=== PATIENT | female | born 1965 | race American Indian/Alaskan Native ===

== ENCOUNTER 2017-05-02 10:00 | Emergency (ER) | payer OTHER ==
--- NOTE | 2017-05-02 10:15 | EDM.PDOC ---
ED HPI GENERAL MEDICAL PROBLEM - General Stated Complaint: BY AMBULANCE Time Seen by Provider: 05/02/17 10:05 Source of Information: Reports: Patient History Limitations: Reports: No Limitations - History of Present Illness INITIAL COMMENTS - FREE TEXT/NARRATIVE: This 51 yo female patient was brought to the ED by [facility] due to chest pain. The patient was given aspirin and nitro x1 by EMS prior to arrival in the ED. The patient refused IV access and EKG by EMS. The patient reports she has been having intermittent chest pain for the past 2 days and did not want to tell anyone about it. The patient reports she has no pain at the time of assessment. The patient reports she has been having a cough for the past couple of weeks with increased pain with her cough. The patient reports she has been drinking (6 -8 beers with the last drink at 2200 last night). The patient denies any drug use. The patient reports she has been eating normally with her last meal at about 1800 last night. 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 [No Known Home Meds] 05/02/17 [History] ED ROS GENERAL - Review of Systems Review Of Systems: ROS reveals no pertinent complaints other than HPI. ED EXAM, GENERAL - Physical Exam Exam: See Below Exam Limited By: No Limitations General Appearance: Alert, WD/WN, Moderate Distress Eye Exam: Bilateral Eye: EOMI, Normal Inspection, PERRL Ears: Normal External Exam, Normal Canal, Hearing Grossly Normal, Normal TMs Nose: Normal Inspection, Normal Mucosa, No Blood Throat/Mouth: Normal Inspection, Normal Lips, Normal Teeth, Normal Gums, Normal Oropharynx, Normal Voice, No Airway Compromise Head: Atraumatic, Normocephalic Neck: Normal Inspection, Supple, Non-Tender, Full Range of Motion Respiratory/Chest: No Respiratory Distress, Lungs Clear, Normal Breath Sounds, No Accessory Muscle Use, Other (sternal tenderness with deep breaths) Cardiovascular: Normal Peripheral Pulses, Regular Rate, Rhythm, No Edema, No Gallop, No JVD, No Murmur, No Rub GI/Abdominal: Normal Bowel Sounds, Soft, Tender (lower abdomen (diffuse) ) (Female) Exam: Deferred Rectal (Female) Exam: Deferred Back Exam: Normal Inspection, Full Range of Motion, NT Extremities: Normal Inspection, Normal Range of Motion, Non-Tender, Normal Capillary Refill, No Pedal Edema Neurological: Alert, Oriented, CN II-XII Intact, Normal Cognition, Normal Gait, Normal Reflexes, No Motor/Sensory Deficits Psychiatric: Anxious Skin Exam: Warm, Dry, Intact, Normal Color, No Rash Lymphatic: No Adenopathy Course - Vital Signs Last Recorded V/S: Last Vital Signs Temp 36.4 C 05/02/17 10:10 Pulse 80 05/02/17 10:10 Resp 20 05/02/17 10:10 BP 90/60 05/02/17 10:10 Pulse Ox 99 05/02/17 10:10 - Orders/Labs/Meds Orders: Active Orders 24 hr Category Date Time Status EKG Documentation Completion [RC] URGENT Care 05/02/17 09:54 Active Chest 1V Frontal [CR] Urgent Exams 05/02/17 09:55 Taken Labs: Laboratory Tests 05/02/17 05/02/17 05/02/17 Range/Units 10:10 10:10 10:10 WBC 7.2 (5.0-10.0) 10^3/uL RBC 3.72 L (4.2-5.4) 10^6/uL Hgb 12.8 (12.0-16.0) g/dL Hct 35.8 L (37.0-47.0) % MCV 96.2 (80-100) fL MCH 34.4 H (27.0-34.0) pg MCHC 35.8 H (33.0-35.0) g/dL Plt Count 128 L (150-450) 10^3/uL Neut % (Auto) 53.1 (42.2-75.2) % Lymph % (Auto) 36.2 (20.5-50.1) % [place] % (Auto) 9.3 H (2-8) % Eos % (Auto) 1.0 (1.0-3.0) % Baso % (Auto) 0.4 (0.0-1.0) % Sodium 140 (135-145) mmol/L Potassium 3.3 L (3.6-5.0) mmol/L Chloride 109 (101-111) mmol/L Carbon Dioxide 19.0 L (21.0-31.0) mmol/L Anion Gap 15.3 BUN 9 (7-18) mg/dL Creatinine 0.5 L (0.6-1.3) mg/dL Est Cr Clr Drug Dosing TNP Estimated GFR (MDRD) > 60 BUN/Creatinine Ratio 18.00 Glucose 116 H (74-105) mg/dL Calcium 8.1 L (8.4-10.2) mg/dl Magnesium 1.8 (1.8-2.5) mg/dL Total Bilirubin 0.4 (0.2-1.0) mg/dL AST 268 H (10-42) IU/L ALT 217 H (10-60) IU/L Alkaline Phosphatase 105 (42-121) IU/L Ammonia 31 (11-35) umol/L Troponin I < 0.02 (0.00-0.02) ng/ml Total Protein 7.6 (6.7-8.2) g/dl Albumin 3.9 (3.2-5.5) g/dl Globulin 3.7 Albumin/Globulin Ratio 1.05 Amylase 55 (28-100) U/L Lipase 29 (22-51) U/L Urine Color (YELLOW) Urine Appearance (CLEAR) Urine pH (5.0-9.0) Ur Specific Emery (1.005-1.030) Urine Protein (NEGATIVE) Urine Glucose (UA) (NEGATIVE) Urine Ketones (NEGATIVE) Urine Occult Blood (NEGATIVE) Urine Nitrite (NEGATIVE) Urine Bilirubin (NEGATIVE) Urine Urobilinogen (0.2-1.0) mg/dL Ur Leukocyte Esterase (NEGATIVE) Urine RBC /HPF Urine WBC (0-5/HPF) /HPF Ur Epithelial Cells /HPF Urine Bacteria (0-FEW/HPF) /HPF Salicylates < 4 Urine Opiates Screen (NEGATIVE) Ur Oxycodone Screen (NEGATIVE) Urine Methadone Screen (NEGATIVE) Acetaminophen < 10 Ur Barbiturates Screen (NEGATIVE) U Tricyclic Antidepress (NEGATIVE) Ur Phencyclidine Scrn (NEGATIVE) Ur Amphetamine Screen (NEGATIVE) U Methamphetamines Scrn (NEGATIVE) Urine MDMA Screen (NEGATIVE) U Benzodiazepines Scrn (NEGATIVE) Urine Cocaine Screen (NEGATIVE) U Marijuana (THC) Screen (NEGATIVE) Ethyl Alcohol 337 mg/dL 05/02/17 05/02/17 Range/Units 10:17 10:17 WBC (5.0-10.0) 10^3/uL RBC (4.2-5.4) 10^6/uL Hgb (12.0-16.0) g/dL Hct (37.0-47.0) % MCV (80-100) fL MCH (27.0-34.0) pg MCHC (33.0-35.0) g/dL Plt Count (150-450) 10^3/uL Neut % (Auto) (42.2-75.2) % Lymph % (Auto) (20.5-50.1) % [place] % (Auto) (2-8) % Eos % (Auto) (1.0-3.0) % Baso % (Auto) (0.0-1.0) % Sodium (135-145) mmol/L Potassium (3.6-5.0) mmol/L Chloride (101-111) mmol/L Carbon Dioxide (21.0-31.0) mmol/L Anion Gap BUN (7-18) mg/dL Creatinine (0.6-1.3) mg/dL Est Cr Clr Drug Dosing Estimated GFR (MDRD) BUN/Creatinine Ratio Glucose (74-105) mg/dL Calcium (8.4-10.2) mg/dl Magnesium (1.8-2.5) mg/dL Total Bilirubin (0.2-1.0) mg/dL AST (10-42) IU/L ALT (10-60) IU/L Alkaline Phosphatase (42-121) IU/L Ammonia (11-35) umol/L Troponin I (0.00-0.02) ng/ml Total Protein (6.7-8.2) g/dl Albumin (3.2-5.5) g/dl Globulin Albumin/Globulin Ratio Amylase (28-100) U/L Lipase (22-51) U/L Urine Color Yellow (YELLOW) Urine Appearance Clear (CLEAR) Urine pH 5.5 (5.0-9.0) Ur Specific Emery <= 1.005 (1.005-1.030) Urine Protein Negative (NEGATIVE) Urine Glucose (UA) Negative (NEGATIVE) Urine Ketones Negative (NEGATIVE) Urine Occult Blood Negative (NEGATIVE) Urine Nitrite Negative (NEGATIVE) Urine Bilirubin Negative (NEGATIVE) Urine Urobilinogen 0.2 (0.2-1.0) mg/dL Ur Leukocyte Esterase Negative (NEGATIVE) Urine RBC Not seen /HPF Urine WBC 0-5 (0-5/HPF) /HPF Ur Epithelial Cells Few /HPF Urine Bacteria Moderate H (0-FEW/HPF) /HPF Salicylates Urine Opiates Screen Negative (NEGATIVE) Ur Oxycodone Screen Negative (NEGATIVE) Urine Methadone Screen Negative (NEGATIVE) Acetaminophen Ur Barbiturates Screen Negative (NEGATIVE) U Tricyclic Antidepress Negative (NEGATIVE) Ur Phencyclidine Scrn Negative (NEGATIVE) Ur Amphetamine Screen Negative (NEGATIVE) U Methamphetamines Scrn Negative (NEGATIVE) Urine MDMA Screen Negative (NEGATIVE) U Benzodiazepines Scrn Negative (NEGATIVE) Urine Cocaine Screen Negative (NEGATIVE) U Marijuana (THC) Screen Negative (NEGATIVE) Ethyl Alcohol mg/dL - Re-Assessments/Exams Free Text/Narrative Re-Assessment/Exam: 05/02/17 10:42 The patient wanted to leave prior to receiving her lab results during the visit. The patient left the ED at 1044. Departure - Departure Time of Disposition: 10:44 Disposition: Against Medical Advice 07 Condition: Undetermined Clinical Impression: ETOH abuse Chest pain Qualifiers: Chest pain type: unspecified Qualified Code(s): R07.9 - Chest pain, unspecified Care Plan Goals: This patient left prior to getting the lab results, chest x-ray results or UA results. - My Orders Last 24 Hours: My Active Orders 05/02/17 09:54 EKG Documentation Completion [RC] URGENT 05/02/17 09:55 Chest 1V Frontal [CR] Urgent - Assessment/Plan Last 24 Hours: My Active Orders 05/02/17 09:54 EKG Documentation Completion [RC] URGENT 05/02/17 09:55 Chest 1V Frontal [CR] Urgent
[2017-05-02 10:27] LABS: CHLORIDE,CL 109 mmol/L (101-111); SODIUM,NA 140 mmol/L (135-145)
[2017-05-02 10:49] LABS: ACETAMINOPHEN < 10
--- NOTE | 2017-05-04 17:27 | EKG ---
05/02/2017 - MARIO POSEY - EKG per my reading shows sinus rhythm at the rate of 77. [facility] /[id number]
== END 2017-05-02 10:54 | disposition left against medical advice (07) ==
LOC: DL.ED 10:00
DX: R07.9 Chest pain, unspecified (principal); F10.10 Alcohol abuse, uncomplicated; Y90.8 Blood alcohol level of 240 mg/100 ml or more
CPT/HCPCS: 36415; 71045; 80053; 80305; 81001; 82140; 82150; 83690; 83735; 84484; 85025; 93005; 93010; 99285; G0480; 99284

== ENCOUNTER 2018-10-11 18:47 | Emergency (ER) | payer MEDICAID, OTHER ==
[2018-10-11] MEDS: Acetaminophen/HYDROcodone 325-10 MG Tab PO ONE (21:15)
--- NOTE | 2018-10-11 21:28 | EDM.PDOC ---
ED HPI GENERAL MEDICAL PROBLEM - General Chief Complaint: Upper Extremity Injury/Pain Stated Complaint: RIGHT WRIST BROKE? [id number] Time Seen by Provider: 10/11/18 19:35 Source of Information: Reports: Patient History Limitations: Reports: No Limitations - History of Present Illness INITIAL COMMENTS - FREE TEXT/NARRATIVE: ED with c/o pain to right wrist after falling down narrw steep stairs last evening. hand swollen. No other injury. Treatments CARDIOLOGY NURSE PRACTITIONER: Reports: NSAIDS Right Wrist Pain Score (Numeric/FACES): 7 - Related Data Allergies Allergy/AdvReac Type Severity Reaction Status Date / Time No Known Allergies Allergy Verified 10/11/18 18:52 Home Meds: Home Meds . [No Known Home Meds] 05/02/17 [History] Past Medical History - Past Health History Medical/Surgical History: Denies Medical/Surgical History Review of Systems - Review of Systems Review Of Systems: ROS reveals no pertinent complaints other than HPI. ED EXAM, GENERAL - Physical Exam Exam: See Below Exam Limited By: No Limitations General Appearance: Alert, Moderate Distress, Thin Eye Exam: Bilateral Eye: EOMI Ears: Normal External Exam Nose: Normal Inspection Throat/Mouth: Normal Inspection Head: Atraumatic, Normocephalic Neck: Normal Inspection Respiratory/Chest: No Respiratory Distress Cardiovascular: Normal Peripheral Pulses, Regular Rate, Rhythm Peripheral Pulses: 2+: Radial (R) Back Exam: Full Range of Motion Extremities: Normal Capillary Refill, Joint Swelling, Limited Range of Motion ( right wrist swollen, mild angled deformity. fingers right hand swollen, Rigns removed. ). No: Slow Capillary Refill Neurological: Alert, Oriented, Normal Cognition Psychiatric: Normal Affect, Normal Mood Skin Exam: Warm, Dry, Intact, Ecchymosis (right wrist) ED TRAUMA EXTREMITY PROCEDURES - Splinting Right Upper Extremity Pre-Procedure NV Status: Normal Post-Procedure NV Status: Normal Splint Material: Fiberglass Splint Design: Sugar Tong Course - Vital Signs Last Recorded V/S: Last Vital Signs Temp 99.2 F 10/11/18 18:53 Pulse 78 10/11/18 18:53 Resp 14 10/11/18 18:53 BP 113/78 10/11/18 18:53 Pulse Ox 99 10/11/18 18:53 - Orders/Labs/Meds Orders: Active Orders 24 hr Category Date Time Status EKG Documentation Completion [RC] URGENT Care 10/11/18 21:16 Inactive Head wo Cont [CT] Urgent Exams 10/11/18 21:15 Stop Req Meds: Medications Discontinued Medications Generic Name Dose Route Start Last Admin Trade Name Freq PRN Reason Stop Dose Admin Hydrocodone Bitart/Acetaminophen 1 tab 10/11/18 21:08 10/11/18 21:15 [place] 325-10 Mg PO 10/11/18 21:09 1 tab ONETIME ONE Administration - Radiology Interpretation Free Text/Narrative:: [facility] [place] [facility] Final Radiology Report Call: [phone] assistance Online chat: [email or web address] Name: MARIO POSEY Age: 52Years F Date: 10/11/2018 SSN: -- : 1965 Study: XR WRIST COMPLETE MIN OF 3 VIEWS RIGHT Requesting Physician: CARLOS TY Images: 3 Addl Studies: Provided Clinical History: Contrast: Contrast Medium: Contrast Amount: Contrast Method: CONFIDENTIALITY STATEMENT This report is intended only for use by the referring physician, and only in accordance with law. If you received this in error, call [phone]. Page 1 of 1 EXAM: XR Right Wrist EXAM DATE/TIME: 10/11/2018 7:09 PM CLINICAL HISTORY: 52 years old, female; Pain; Wrist; Right TECHNIQUE: Imaging protocol: XR Right wrist. Views: 3 or more views. COMPARISON: No relevant prior studies available. FINDINGS: Bones/joints: There is impacted slightly comminuted posterior displaced distal radial fracture. Associated nondisplaced ulnar styloid process fracture Soft tissues: Normal. IMPRESSION: Distal radial and ulnar fractures Thank you for allowing us to participate in the care of your patient. Dictated and Authenticated by: Pedro Stanton MD 10/11/2018 8:07 PM Central Time ([place] & [place]) - Re-Assessments/Exams Free Text/Narrative Re-Assessment/Exam: 10/12/18 03:50 expandable ring removed right middle finger. Right 4th removed with ring cutter. Pulses intact. Good cap refill. TC Dr Walker Carvalho recommend sugar tong splint and he will see in clinic on or following Wednesday. patient to call in am and confirm time. Departure - Departure Time of Disposition: 21:24 Disposition: Home, Self-Care 01 Condition: Good Clinical Impression: Fracture of radius and ulna Qualifiers: Encounter type: initial encounter Fracture type: closed Laterality: right Qualified Code(s): S52.91XA - Unspecified fracture of right forearm, initial encounter for closed fracture - Discharge Information *PRESCRIPTION DRUG MONITORING PROGRAM REVIEWED*: No *COPY OF PRESCRIPTION DRUG MONITORING REPORT IN PATIENT ISAIAS: No Instructions: Cast or Splint Care, Adult, [id number] Referrals: Gabriel Talbert [Primary Care Provider] - Forms: ED Department Discharge Additional Instructions: ice elevate extremity sling follow up with ortho on . Call in am to schedule specific time [phone] [facility] alternate tylenol and ibuprofen alternate every 4 hours as needed for discomfort - My Orders Last 24 Hours: My Active Orders 10/11/18 21:15 Head wo Cont [CT] Urgent 10/11/18 21:16 EKG Documentation Completion [RC] URGENT - Assessment/Plan Last 24 Hours: My Active Orders 10/11/18 21:15 Head wo Cont [CT] Urgent 10/11/18 21:16 EKG Documentation Completion [RC] URGENT
== END 2018-10-11 22:12 | disposition home or self-care (01) ==
LOC: DL.ED 18:47
DX: S52.614A Nondisplaced fracture of right ulna styloid process, initial encounter for closed fracture (principal); S52.501A Unspecified fracture of the lower end of right radius, initial encounter for closed fracture; W10.9XXA Fall (on) (from) unspecified stairs and steps, initial encounter
CPT/HCPCS: 29125; 73110; 99283; A9270

== ENCOUNTER 2022-02-19 20:58 | Emergency (ER) | payer SELFPAY | END 2022-02-19 23:10 | disposition home or self-care (01) | LOC: DL.ED 20:58 | DX: S42.031A Displaced fracture of lateral end of right clavicle, initial encounter for closed fracture (principal); F17.210 Nicotine dependence, cigarettes, uncomplicated; Y04.0XXA Assault by unarmed brawl or fight, initial encounter | CPT/HCPCS: 73030-RT; 99283 ==

== ENCOUNTER 2022-06-21 23:00 | Emergency (ER) | payer BC, MEDICAID | END 2022-06-21 23:09 | disposition home or self-care (01) | LOC: DL.ED 23:00 | DX: S42.031D Displaced fracture of lateral end of right clavicle, subsequent encounter for fracture with routine healing (principal); I10 Essential (primary) hypertension; W20.8XXD Other cause of strike by thrown, projected or falling object, subsequent encounter | CPT/HCPCS: 73030-RT; 99282; 99283 ==

== ENCOUNTER 2022-12-20 14:24 | Emergency (ER) | payer BC, MEDICAID ==
[2022-12-20 14:44] LABS: BASOPHILS PERCENT AUTO 0.6 % (0.0-1.0); HEMOGLOBIN 13.1 g/dL (12.0-16.0); LYMPHOCYTES PERCENT AUTO 33.1 % (20.5-50.1); MEAN CORPUSCULAR HEMOGLOBIN 34.5 pg (27.0-34.0); MEAN CORPUSCULAR HGB CONC 35.4 g/dL (33.0-35.0); MEAN CORPUSCULAR VOLUME 97.4 fL (80-100); MONOCYTES PERCENT AUTO 8.8 % (2-8); NEUTROPHILS PERCENT AUTO 56.5 % (42.2-75.2); PLATELET COUNT,PLT 146 10^3/uL (150-450); WHITE BLOOD CELL COUNT,WBC 4.8 10^3/uL (5.0-10.0)
[2022-12-20 15:05] LABS: ANION GAP 12.9 mEq/L (7-13); BILIRUBIN TOTAL 0.9 mg/dL (0.2-1.0); BUN/CREATININE RATIO 13.3 (No establ ref range); CALCIUM 8.2 mg/dL (8.5-10.1); CREATININE 0.6 mg/dL (0.55-1.02); EST CRCL DRUG DOSING (CG) 91.96 mL/min; POTASSIUM,K 2.9 mmol/L (3.5-5.1); PROTEIN TOTAL,TP 7.2 g/dL (6.4-8.2)
[2022-12-20 15:06] LABS: A/G RATIO 0.71
[2022-12-20] MEDS ORDERED: Potassium Chloride 10 MEQ in Premix Bag 1 BAG IV ONE (15:14)
[2022-12-20] MEDS ORDERED: Lidocaine 1% 5 ML VIAL INJECT ONE (15:15)
[2022-12-20] MEDS ORDERED: Ondansetron 4 MG/2 ML SDV IV ONE (15:16)
[2022-12-20] MEDS ORDERED: Potassium Chloride 10 MEQ Tab.ER PO ONE (15:16)
== END 2022-12-20 17:00 | disposition home or self-care (01) ==
LOC: DL.ED 14:24
DX: T17.320A Food in larynx causing asphyxiation, initial encounter (principal); F10.929 Alcohol use, unspecified with intoxication, unspecified; E87.6 Hypokalemia; I10 Essential (primary) hypertension
CPT/HCPCS: 36415; 71045; 80053; 80307; 85025; 96374; 96375; 99284; A9270; J2405; J3480; J3490

== ENCOUNTER 2023-08-07 23:39 | Emergency (ER) | payer MEDICAID | END 2023-08-08 00:33 | disposition left against medical advice (07) | LOC: DL.ED 23:39 | DX: Z53.21 Procedure and treatment not carried out due to patient leaving prior to being seen by health care provider (principal) ==

== ENCOUNTER 2024-05-12 19:07 | Emergency (ER) | payer MEDICAID ==
[2024-05-12] MEDS: Acetaminophen 500 MG Tab PO ONE (19:12)
== END 2024-05-12 19:15 | disposition home or self-care (01) ==
LOC: DL.ED 19:07
DX: S09.90XA Unspecified injury of head, initial encounter (principal); I10 Essential (primary) hypertension; W19.XXXA Unspecified fall, initial encounter
CPT/HCPCS: 70450; 72125; 99283; 99284; A9270